=== PATIENT | male | born 1990 | race Hispanic/Latino ===

== ENCOUNTER 2019-11-27 16:16 | Emergency (ER) | payer OTHER, SELFPAY ==
[2019-11-27 16:40] LABS: Absolute Lymphocytes (CBC) 2.2 K/uL (0.7-4.9); Basophils % 0.6 % (0-1.3); Hematocrit 44.4 % (39.6-49.0); Lymphocytes % 29.7 % (15.3-44.8); MPV 8.1 fL (7.6-11.3); RBC Red Blood Cell Count 5.45 M/uL (4.33-5.43)
[2019-11-27 16:41] LABS: Protime INR 1.08
[2019-11-27] MEDS ORDERED: MORPHINE 4 MG/ML SYR ONE (16:41)
[2019-11-27] MEDS ORDERED: ONDANSETRON 4 MG/2 ML VIAL ONE (16:41)
[2019-11-27 16:59] LABS: ALT/SGPT 53 U/L (12-78); AST/SGOT 23 U/L (15-37); Alkaline Phosphatase 105 U/L (45-117); BUN Blood Urea Nitrogen 15 mg/dL (7-18); Bicarbonate 25 mmol/L (21-32); Bilirubin Direct 0.1 mg/dL (0-0.2); Bilirubin Total 0.4 mg/dL (0.2-1.0); Glucose Level 94 mg/dL (74-106); Lipase 74 U/L (73-393); Magnesium 2.1 mg/dL (1.8-2.4); NT PRO-BNP 17 pg/mL (<125); Potassium 3.6 mmol/L (3.5-5.1); Protein, Total 7.5 g/dL (6.4-8.2); Sodium Level 141 mmol/L (136-145); Troponin (Emerg Dept Use Only) < 0.02 ng/mL (0.0-0.045)
--- NOTE | 2019-11-27 17:43 | RAD REPORT ---
EXAM DESCRIPTION: CT - Chest Abdomen Pelvis W Cont - 11/27/2019 5:29 pm CLINICAL HISTORY: left sided chest pain, left flank pain COMPARISON: Chest Single View dated 11/27/2019 TECHNIQUE: Following dynamic enhancement using 100 milliliters nonionic IV contrast, axial imaging o f the chest, abdomen and pelvis was performed. Biphasic technique was utilized through the abdomen. No oral contrast given. All CT scans are performed using dose optimization technique as appropriate and may include automated exposure control or mA/KV adjustment according to patient size. FINDINGS: Lungs are clear of mass and infiltrate. No pleural effusion, pleural thickening or pneumot horax. No significant aortic or pulmonary arterial tree finding. Mediastinal and hilar regions show n o mass or abnormal lymphadenopathy. No chest wall mass or axillary lymphadenopathy. The liver, spleen and pancreas show no focal findings. Liver attenuation borderline for fatty infiltr ation. Gallbladder and biliary tree are unremarkable. Gallstones can be occult on CT imaging. Symmetric renal function is seen with no mass or hydronephrosis. No adrenal abnormalities. Urinary bl adder is fully contracted which precludes accurate assessment. [place]ez of bladder do appear slightly th ickened but there is no edema or stranding in the adjacent fat. Cystitis would not be suspected witho ut supporting clinical findings or UA abnormalities. No dilated bowel loops or focal bowel wall thickening. Appendix is normal. No acute GI findings seen. No free air, free fluid or inflammatory stranding. Small fat only umbilical hernia is present no acu te component. No mass or bulky lymphadenopathy. No omental thickening. No acute or destructive bony process. No significant vascular findings. IMPRESSION: CT chest, abdomen and pelvis imaging shows no acute or emergent finding. Urinary bladder cortez do appear thickened; however, the fully contracted state precludes any accurate assessment. Cystitis would not be suspected unless there are supporting clinical findings or UA abno rmalities. Liver attenuation is borderline for fatty infiltration.
--- NOTE | 2019-11-27 17:45 | RAD REPORT ---
EXAM DESCRIPTION: RAD - Chest Single View - 11/27/2019 5:07 pm CLINICAL HISTORY: CHEST PAIN, left side COMPARISON: None TECHNIQUE: AP portable chest image was obtained 11/27/2019 5:07 pm . FINDINGS: Lungs are clear. Heart and vasculature are normal. No measurable pleural effusion and no p neumothorax. No acute bony abnormality seen. No acute aortic findings suspected. IMPRESSION: No acute cardiopulmonary process.
--- NOTE | 2019-11-27 18:18 | ER ---
Nurse's Notes [facility] Name: Ricky Avendaño Jr Age: 28 yrs Sex: Male : 1990 Arrival Date: 11/27/2019 Time: 16:19 Bed 4 Private MD: Diagnosis: Chest pain, unspecified Presentation: 11/26 16:24 Chief complaint: Patient states: sudden onset left sided lower rib pain X 1 hour, iw denies injury, denies n/v, denies cough, pain described as sharp, aggravated by deep breath and movement. Coronavirus screen: Proceed with normal triage. Patient denies a cough. Patient denies shortness of breath or difficulty breathing. Patient denies measured and/or subjective temperature greater than 100.4F prior to today's visit. Patient denies travel on a cruise ship or to a country the [facility] currently lists as an affected area. Patient denies contact with known and/or suspected case of COVID-19. Ebola Screen: Patient negative for fever greater than or equal to 101.5 degrees Fahrenheit, and additional compatible Ebola Virus Disease symptoms Patient denies exposure to infectious person. Patient denies travel to an Ebola-affected area in the 21 days before illness onset. No symptoms or risks identified at this time. Initial Sepsis Screen: Does the patient meet any 2 criteria? No. Patient's initial sepsis screen is negative. Does the patient have a suspected source of infection? No. Patient's initial sepsis screen is negative. Risk Assessment: Do you want to hurt yourself or someone else? Patient reports no desire to harm self or others. Onset of symptoms was November 27, 2019. 16:24 Method Of Arrival: EMS: [facility] iw 16:24 Acuity: [facility] 3 iw Historical: - Allergies: 16:29 No Known Allergies; iw - Home Meds: 16:29 None [Active]; iw - PMHx: 16:29 None; iw - PSHx: 16:29 None; iw - Immunization history:: Adult Immunizations. - Social history:: Smoking status: Patient denies any tobacco usage or history of. Screenin:48 Abuse screen: Denies threats or abuse. Denies injuries from another. Nutritional iw screening: No deficits noted. Tuberculosis screening: No symptoms or risk factors identified. Fall Risk IV access (20 points). Assessment: 16:47 General: Appears uncomfortable, Behavior is cooperative, appropriate for age. Pain: iw Complains of pain in left lateral anterior chest Pain does not radiate. Pain currently is 8 out of 10 on a pain scale. Pain began 1 hour ago. Neuro: Level of Consciousness is awake, alert, obeys commands, Oriented to person, place, time, situation, Moves all extremities. Full function. Cardiovascular: Reports chest pain, Denies nausea, shortness of breath, vomiting, Capillary refill < 3 seconds in bilateral fingers Patient's skin is warm and dry. Respiratory: Reports shortness of breath labored breathing pain with respiration Respiratory effort is even, unlabored, Respiratory pattern is regular. GI: Abdomen is non-distended. Derm: Skin is intact, is healthy with good turgor. Musculoskeletal: Range of motion: intact in all extremities. Vital Signs: 16:24 BP 141 / 65; Pulse 65; Resp 18 S; Temp 98.3; Pulse Ox 98% on R/A; Weight 106.59 kg; iw Height 6 ft. 1 in. (185.42 cm); Pain 8/10; 17:39 BP 125 / 68; Pulse 70; Resp 16; Pulse Ox 98% on R/A; Pain 8/10; iw 16:24 Body Mass Index 31.00 (106.59 kg, 185.42 cm) ED Course: 16:19 Patient arrived in ED. [facility] 16:22 Adryan Cohen PA is PHCP. [facility] 16:22 Jaison Ludwig MD is Attending Physician. [facility] 16:27 Triage completed. iw 16:29 Justyna Amanda, RN is Primary Nurse. iw 16:29 Arm band placed on. iw 16:37 Initial lab(s) drawn, by nc, sent to lab. Inserted saline lock: 22 gauge in left jb1 antecubital area, using aseptic technique. Blood collected. 16:47 EKG done, by ED staff, reviewed by Adryan MURO. [facility] 17:07 XRAY Chest (1 view) In Process Unspecified. EDMS 17:30 CT Chest, Abdomen, Pelvis - W/Contrast In Process Unspecified. EDMS 19:02 No provider procedures requiring assistance completed. IV discontinued, intact, iw bleeding controlled, No redness/swelling at site. Pressure dressing applied. Patient maintains SpO2 saturation greater than 95% on room air. Administered Medications: 16:47 Not Given (Patient Refused): morphine 4 mg IVP once; RASS on ADMIN: Combtv4, Very iw Agttd3, Agttd2, Rstlss1, AlertClm0, Drwsy-1, Lt Sdtn-2, Mod Sdtn-3, Dp Sdtn-4, UnArsble-5 16:49 Not Given (Patient Refused): Zofran (Ondansetron) 4 mg IVP once; over 2 minutes iw Outcome: 18:17 Discharge ordered by MD. petty 19:02 Discharged to home ambulatory, with family. iw 19:02 Condition: good 19:02 Discharge instructions given to patient, Instructed on discharge instructions, follow up and referral plans. Demonstrated understanding of instructions, follow-up care. 19:03 Patient left the ED. iw Signatures: Dispatcher [employer] EDRicardo Ellis [email or web address] Adryan Cohen PA PA jmm Williams, Irene, RN RN iw Corrections: (The following items were deleted from the chart) 11/27 15:51 07 19:02 Patient admitted, IV remains in place. iw iw
--- NOTE | 2019-11-27 18:18 | EDPHYS ---
Physician Documentation [facility] Name: Ricky Avendaño Jr Age: 28 yrs Sex: Male : 1990 Arrival Date: 11/27/2019 Time: 16:19 Bed 4 Private MD: ED Physician Jaison Ludwig HPI: 11/26 16:20 This 28 yrs old Male presents to ER via EMS with complaints of Chest Pain. [facility] 16:20 The patient or guardian reports chest pain that is located primarily in the left jmm lateral anterior chest. The pain does not radiate. The chest pain is described as aching, sharp. Duration: The patient or guardian reports a single episode, that is still ongoing. Modifying factors: the symptoms are aggravated by twisting torso. This is a 28 year old male with no chronic medical conditions that presents to the ED with complaints of left lateral chest pain and flank pain beginning gradually this morning intensifying just prior to arrival. Denies vomiting or abdominal pain. . Historical: - Allergies: 16:29 No Known Allergies; iw - Home Meds: 16:29 None [Active]; iw - PMHx: 16:29 None; iw - PSHx: 16:29 None; iw - Immunization history:: Adult Immunizations. - Social history:: Smoking status: Patient denies any tobacco usage or history of. ROS: 16:20 Constitutional: Negative for fever, chills, and weight loss, Eyes: Negative for injury, jmm pain, redness, and discharge. 16:20 Abdomen/GI: Negative for abdominal pain, nausea, vomiting, diarrhea, and constipation, Back: Negative for injury and pain. 16:20 Cardiovascular: Positive for chest pain. 16:20 Back: Positive for flank pain. 16:20 All other systems are negative. Exam: 16:20 Head/Face: atraumatic. Eyes: EOMI, no conjunctival erythema appreciated ENT: Moist jmm Mucus Membranes Neck: Trachea midline, Supple Cardiovascular: Regular rate and rhythm. No edema appreciated Respiratory: Normal respirations, no respiratory distress appreciated 16:20 Back: Normal ROM Skin: General appearance color normal MS/ Extremity: Moves all extremities, no obvious deformities appreciated, no edema noted to the lower extremities Neuro: Awake and alert, normal gait Psych: Behavior is normal, Mood is normal, Patient is cooperative and pleasant 16:20 Constitutional: The patient appears alert, awake, in obvious pain, uncomfortable. 16:20 Chest/axilla: Palpation: tenderness, that is moderate, of the left lateral anterior chest. 16:45 ECG was reviewed by the Attending Physician. [facility] Vital Signs: 16:24 BP 141 / 65; Pulse 65; Resp 18 S; Temp 98.3; Pulse Ox 98% on R/A; Weight 106.59 kg; iw Height 6 ft. 1 in. (185.42 cm); Pain 8/10; 17:39 BP 125 / 68; Pulse 70; Resp 16; Pulse Ox 98% on R/A; Pain 8/10; iw 16:24 Body Mass Index 31.00 (106.59 kg, 185.42 cm) iw MDM: 16:22 Patient medically screened. [facility] 18:03 Data reviewed: vital signs, nurses notes, lab test result(s), EKG, radiologic studies, [facility] CT scan, plain films. ED course: Imaging studies are negative. Pain appear most likely due to chest wall. Patient is given strict return precautions. Patient given strict return precautions. Patient understood and agrees with the plan of care. . 18:12 Data reviewed: vital signs. [facility] 11/26 16:20 Order name: Basic Metabolic Panel; Complete Time: 17:03 [facility] 11/26 16:20 Order name: CBC with Diff; Complete Time: 17:03 [facility] 11/26 16:20 Order name: LFT's; Complete Time: 17:03 [facility] 11/26 16:20 Order name: Magnesium; Complete Time: 17:03 [facility] 11/26 16:20 Order name: NT PRO-BNP; Complete Time: 17:03 [facility] 11/26 16:20 Order name: PT-INR; Complete Time: 17:03 [facility] 11/26 16:20 Order name: Troponin (emerg Dept Use Only); Complete Time: 17:03 [facility] 11/26 16:20 Order name: XRAY Chest (1 view); Complete Time: 17:47 [facility] 11/26 16:20 Order name: EKG; Complete Time: 16:21 [facility] 11/26 16:20 Order name: Lipase; Complete Time: 17:03 [facility] 11/26 16:49 Order name: CT Chest, Abdomen, Pelvis - W/Contrast; Complete Time: 17:47 [facility] 11/26 18:11 Order name: INCENTIVE SPIROMETRY [facility] 11/26 16:20 Order name: Cardiac monitoring; Complete Time: 16:37 [facility] 11/26 16:20 Order name: EKG - Nurse/Tech; Complete Time: 16:37 [facility] 11/26 16:20 Order name: IV Saline Lock; Complete Time: 16:37 [facility] 11/26 16:20 Order name: Labs collected and sent; Complete Time: 16:37 [facility] 11/26 16:20 Order name: O2 Per Protocol; Complete Time: 16:37 [facility] 11/26 16:20 Order name: O2 Sat Monitoring; Complete Time: 16:37 [facility] 11/26 16:25 Order name: Urine Dipstick-Ancillary (obtain specimen); Complete Time: 17:38 jmm EC:45 Rate is 67 beats/min. Rhythm is regular. QRS [place] is Normal. DE interval is normal. QRS jmm interval is normal. QT interval is normal. No Q waves. T waves are Flattened in leads aVF, V5, V6. No ST changes noted. Reviewed by me. Administered Medications: 16:47 Not Given (Patient Refused): morphine 4 mg IVP once; RASS on ADMIN: Combtv4, Very iw Agttd3, Agttd2, Rstlss1, AlertClm0, Drwsy-1, Lt Sdtn-2, Mod Sdtn-3, Dp Sdtn-4, UnArsble-5 16:49 Not Given (Patient Refused): Zofran (Ondansetron) 4 mg IVP once; over 2 minutes iw Disposition: 11/27 07:32 Co-signature as Attending Physician, Jaison Ludwig MD. rn Disposition: 11/27/19 18:17 Discharged to Home. Impression: Chest pain, unspecified. - Condition is Stable. - Discharge Instructions: Nonspecific Chest Pain, Incentive Spirometer. - Prescriptions for Medrol (James) 4 mg Oral Tablets, Dose Pack - take 1 tablet by ORAL route as directed - follow package instructions; 1 packet. - Medication Reconciliation Form, Thank You Letter, Antibiotic Education, Prescription Opioid Use, Work release form form. - Follow up: Private Physician; When: 2 - 3 days; Reason: Recheck today's complaints, Continuance of care, Re-evaluation by your physician. Signatures: Dispatcher [employer] EDAdryan Burr PA PA jmm Williams, Irene, RN RN iw Jaison Ludwig MD MD lead burner: (The following items were deleted from the chart) 11/26 19:03 18:17 11/27/2019 18:17 Discharged to Home. Impression: Chest pain, unspecified. iw Condition is Stable. Forms are Medication Reconciliation Form, Thank You Letter, Antibiotic Education, Prescription Opioid Use. Follow up: Private Physician; When: 2 - 3 days; Reason: Recheck today's complaints, Continuance of care, Re-evaluation by your physician. malinda
[2019-11-27 19:17] VITALS: TEMP 98.3; O2SAT 98
[2019-11-27 19:19] VITALS: BP 125/68
== END 2019-11-27 19:03 | disposition home or self-care (01) ==
LOC: ER 16:16
DX: R07.9 Chest pain, unspecified (principal)
CPT/HCPCS: 93005; 85025; 80048; 36415; 83735; 85610; 80076; 84484; 83690; 83880; 71260; 74177; 71045; 99284; Q9967; J2405